=== PATIENT | female | born 1945 | race Caucasian/White ===

== ENCOUNTER 2022-02-23 13:57 | Emergency (ER) | payer MEDICARE ==
[2022-02-23 15:12] LABS: #Eosinphils 0.2 thou/uL (0.0-0.7); #Lymphocytes 1.9 thou/uL (1.20-3.40); #Monocytes 0.6 thou/uL (0.11-0.59); #Neutrophils 3.5 thou/uL (1.40-6.50); %Basophils 0.6 % (0.0-1.0); %Eosinophils 3.1 % (0.0-10.0); %Lymphocytes 30.2 % (21.0-51.0); %Monocytes 9.9 % (0.0-10.0); %Neutrophils 56.3 % (42.0-75.0); Hemoglobin 13.2 g/dL (12.0-16.0); Mean Corpuscular HGB CONC 33.2 g/dL (32.0-36.0); Mean Corpuscular Hemoglobin 30.8 pg (27.0-31.0); Mean Corpuscular Volume 92.8 fL (78.0-98.0); Mean Platelet Volume 6.5 fL (7.4-10.4); Platelet Count 262 thou/uL (130-400); Red Blood Cell (RBC) Count 4.29 mill/uL (4.20-5.40); White Blood Cell (WBC) Count 6.2 thou/uL (4.8-10.8)
[2022-02-23 15:33] LABS: ALT (SGPT) 28 U/L (8-55); AST (SGOT) 27 U/L (5-34); Albumin 3.9 g/dL (3.4-4.8); Alkaline Phosphatase 71 U/L (40-110); Anion Gap 13 mmol/L (10-20); BUN (Urea Nitrogen) 19 mg/dL (9.8-20.1); Bilirubin, Total 0.5 mg/dL (0.2-1.2); Calc. Creatinine Clearance 0 mL/min (70-130); Calcium 9.6 mg/dL (7.8-10.44); Carbon Dioxide 29 mmol/L (23-31); Chloride 101 mmol/L (98-107); Globulin 3.3 g/dL (2.4-3.5); Glucose 135 mg/dL (83-110); Potassium 4.2 mmol/L (3.5-5.1); Protein, Total 7.2 g/dL (5.8-8.1); Sodium 139 mmol/L (136-145)
[2022-02-23] MEDS ORDERED: Enoxaparin Sodium 80 MG/0.8 ML SYRINGE ONE ×2 (17:40→17:43)
[2022-02-23] MEDS ORDERED: Enoxaparin Sodium 40 MG/0.4 ML SYRINGE ONE ×2 (17:40→17:42)
== END 2022-02-23 18:00 | disposition home or self-care (01) ==
LOC: ERS 13:57
DX: I82.412 Acute embolism and thrombosis of left femoral vein (principal); E03.9 Hypothyroidism, unspecified; I10 Essential (primary) hypertension; G47.30 Sleep apnea, unspecified; E66.9 Obesity, unspecified; Z68.45 Body mass index [BMI] 70 or greater, adult; Z79.84 Long term (current) use of oral hypoglycemic drugs; Z79.82 Long term (current) use of aspirin; Z79.899 Other long term (current) drug therapy
CPT/HCPCS: 71045; 80053; 83880; 84484; 85025; 93005; 93970; 96372; J1650

== ENCOUNTER 2022-02-24 20:33 | Inpatient (IN) | payer MEDICARE ==
[2022-02-24] MEDS ORDERED: Bisacodyl 10 MG SUPP PR PRN (21:28)
[2022-02-24] MEDS ORDERED: HYDROcodone/Acetaminophen 5/325 mg Tablet PO PRN (21:28)
[2022-02-24] MEDS ORDERED: Ondansetron PF 4 MG/2 ML Vial IVP PRN (21:28)
[2022-02-24] MEDS ORDERED: HumaLOG 300 UNITS/3 ML VIAL SC PRN (21:28)
[2022-02-24] MEDS ORDERED: Dextrose 5% in Water 1,000 ML IV PRN (21:28)
[2022-02-24] MEDS ORDERED: Dextrose 50% Abboject 50 ML SYRINGE SLOW IVP PRN (21:28)
[2022-02-24] MEDS ORDERED: Zolpidem Tartrate 5 MG TAB PO PRN (21:28)
[2022-02-24] MEDS ORDERED: Guaifenesin DM 100-10/5 ML UDCUP PO PRN (21:28)
[2022-02-24] MEDS ORDERED: hydrALAZINE 20 MG/ML VIAL SLOW IVP PRN (21:31)
[2022-02-24 22:09] LABS: INR-International Normal Ratio 1.1; PTT 26.4 sec (22.9-36.1); Prothrombin Time 14.6 sec (12.0-14.7)
[2022-02-24] MEDS ORDERED: Warfarin Sodium 10 MG TAB PO SCH (22:30)
[2022-02-24] MEDS ORDERED: Warfarin Sodium 5 MG TAB PO SCH (22:30)
[2022-02-24] MEDS ORDERED: Enoxaparin Sodium 100 MG/ML SYRINGE SC SCH (22:30)
[2022-02-25 00:06] VITALS: BMI 47.2
[2022-02-25] MEDS ORDERED: Enoxaparin Sodium 120 MG/0.8 ML SYRINGE SC SCH (00:30)
[2022-02-25 04:59] LABS: #Basophils 0.1 thou/uL (0.0-0.2); #Eosinphils 0.3 thou/uL (0.0-0.7); #Lymphocytes 1.9 thou/uL (1.20-3.40); #Monocytes 0.6 thou/uL (0.11-0.59); #Neutrophils 3.5 thou/uL (1.40-6.50); %Basophils 1.1 % (0.0-1.0); %Lymphocytes 30.2 % (21.0-51.0); %Monocytes 9.4 % (0.0-10.0); %Neutrophils 55.4 % (42.0-75.0); Hemoglobin 12.8 g/dL (12.0-16.0); Mean Corpuscular HGB CONC 33.1 g/dL (32.0-36.0); Mean Corpuscular Hemoglobin 30.8 pg (27.0-31.0); Mean Platelet Volume 6.3 fL (7.4-10.4); Platelet Count 253 thou/uL (130-400); Red Blood Cell (RBC) Count 4.17 mill/uL (4.20-5.40); White Blood Cell (WBC) Count 6.4 thou/uL (4.8-10.8)
[2022-02-25 05:12] LABS: INR-International Normal Ratio 1.1; Prothrombin Time 14.8 sec (12.0-14.7)
[2022-02-25 05:27] LABS: ALT (SGPT) 26 U/L (8-55); AST (SGOT) 35 U/L (5-34); Albumin 3.6 g/dL (3.4-4.8); Alkaline Phosphatase 62 U/L (40-110); Anion Gap 14 mmol/L (10-20); BUN (Urea Nitrogen) 22 mg/dL (9.8-20.1); Bilirubin, Total 0.4 mg/dL (0.2-1.2); Calc. Creatinine Clearance 123 mL/min (70-130); Calcium 9.3 mg/dL (7.8-10.44); Carbon Dioxide 23 mmol/L (23-31); Chloride 104 mmol/L (98-107); Globulin 3.3 g/dL (2.4-3.5); Glucose 142 mg/dL (83-110); Potassium 3.9 mmol/L (3.5-5.1); Protein, Total 6.9 g/dL (5.8-8.1); Sodium 137 mmol/L (136-145)
[2022-02-25] MEDS: Enoxaparin Sodium 120 MG/0.8 ML SYRINGE SC SCH ×2 (08:44→21:04)
[2022-02-25] MEDS: HumaLOG 300 UNITS/3 ML VIAL SC PRN (10:57)
[2022-02-25] MEDS ORDERED: diphenhydrAMINE 25 MG CAP PO PRN (15:22)
[2022-02-25] MEDS ORDERED: Furosemide 40 MG TAB PO PRN (15:22)
[2022-02-25] MEDS ORDERED: Senokot 8.6 MG TAB PO PRN (15:22)
[2022-02-25] MEDS ORDERED: Warfarin Sodium 5 MG TAB PO SCH (17:00)
[2022-02-25] MEDS ORDERED: Warfarin Sodium 10 MG TAB PO SCH ×2 (17:00)
[2022-02-25] MEDS: Simethicone Chewable 80 MG TAB PO SCH (21:04)
[2022-02-25] MEDS: Carvedilol 6.25 MG TAB PO SCH (21:04)
[2022-02-25] MEDS ORDERED: Enoxaparin Sodium 100 MG/ML SYRINGE SC SCH (21:32)
[2022-02-26] MEDS: Levothyroxine Sodium 100 MCG TAB PO SCH (04:28)
[2022-02-26 05:07] LABS: INR-International Normal Ratio 1.1; Prothrombin Time 14.8 sec (12.0-14.7)
[2022-02-26] MEDS: Simethicone Chewable 80 MG TAB PO SCH ×2 (08:50→21:40)
[2022-02-26] MEDS: Carvedilol 6.25 MG TAB PO SCH ×2 (08:50→21:39)
[2022-02-26] MEDS: Aspirin 81 mg Enteric Coated Tablet PO SCH (08:51)
[2022-02-26] MEDS: Cyanocobalamin (Vitamin B-12) 1,000 MCG TAB PO SCH (08:51)
[2022-02-26] MEDS: Oxybutynin ER 5 MG TAB PO SCH (08:51)
[2022-02-26] MEDS: Enoxaparin Sodium 120 MG/0.8 ML SYRINGE SC SCH ×2 (08:51→21:39)
[2022-02-26] MEDS: Loratadine 10 MG TAB PO SCH (08:51)
[2022-02-26] MEDS: HumaLOG 300 UNITS/3 ML VIAL SC PRN (10:43)
[2022-02-26] MEDS ORDERED: Warfarin Sodium 7.5 MG TAB PO SCH (17:00)
[2022-02-27] MEDS: Levothyroxine Sodium 100 MCG TAB PO SCH (05:25)
[2022-02-27 05:31] LABS: INR-International Normal Ratio 1.2; Prothrombin Time 15.5 sec (12.0-14.7)
[2022-02-27] MEDS ORDERED: Warfarin Sodium 7.5 MG TAB PO SCH (08:04)
[2022-02-27] MEDS: Oxybutynin ER 5 MG TAB PO SCH (08:29)
[2022-02-27] MEDS: Aspirin 81 mg Enteric Coated Tablet PO SCH (08:29)
[2022-02-27] MEDS: Simethicone Chewable 80 MG TAB PO SCH ×2 (08:29→21:05)
[2022-02-27] MEDS: Cyanocobalamin (Vitamin B-12) 1,000 MCG TAB PO SCH (08:30)
[2022-02-27] MEDS: Carvedilol 6.25 MG TAB PO SCH (08:30)
[2022-02-27] MEDS: Acetaminophen 325 MG TAB PO PRN ×2 (08:30→12:55)
[2022-02-27] MEDS: Loratadine 10 MG TAB PO SCH (08:30)
[2022-02-27] MEDS: Enoxaparin Sodium 120 MG/0.8 ML SYRINGE SC SCH ×2 (08:30→21:05)
[2022-02-27] MEDS: HumaLOG 300 UNITS/3 ML VIAL SC PRN (10:48)
[2022-02-27] MEDS: Furosemide 20 MG/2 ML VIAL SLOW IVP SCH (14:14)
[2022-02-27] MEDS: Warfarin Sodium 10 MG TAB PO SCH (15:48)
[2022-02-28 04:32] LABS: INR-International Normal Ratio 1.6; Prothrombin Time 19.3 sec (12.0-14.7)
[2022-02-28 04:51] LABS: Anion Gap 11 mmol/L (10-20); BUN (Urea Nitrogen) 14 mg/dL (9.8-20.1); Calc. Creatinine Clearance 129 mL/min (70-130); Calcium 9.1 mg/dL (7.8-10.44); Carbon Dioxide 27 mmol/L (23-31); Chloride 103 mmol/L (98-107); Glucose 139 mg/dL (83-110); Potassium 3.6 mmol/L (3.5-5.1); Sodium 137 mmol/L (136-145)
[2022-02-28] MEDS: Levothyroxine Sodium 100 MCG TAB PO SCH (05:35)
[2022-02-28] MEDS: Furosemide 20 MG/2 ML VIAL SLOW IVP SCH ×2 (05:35→15:10)
[2022-02-28] MEDS: Aspirin 81 mg Enteric Coated Tablet PO SCH (08:41)
[2022-02-28] MEDS: Cyanocobalamin (Vitamin B-12) 1,000 MCG TAB PO SCH (08:41)
[2022-02-28] MEDS: Enoxaparin Sodium 120 MG/0.8 ML SYRINGE SC SCH ×2 (08:41→21:05)
[2022-02-28] MEDS: Oxybutynin ER 5 MG TAB PO SCH (08:42)
[2022-02-28] MEDS: Loratadine 10 MG TAB PO SCH (08:42)
[2022-02-28] MEDS: guaiFENesin ER 600 MG TAB PO SCH ×2 (08:42→21:05)
[2022-02-28] MEDS: Simethicone Chewable 80 MG TAB PO SCH ×2 (08:43→21:06)
[2022-02-28] MEDS: Carvedilol 3.125 MG TAB PO SCH (17:15)
[2022-02-28] MEDS: Warfarin Sodium 10 MG TAB PO SCH (17:15)
[2022-03-01 05:15] LABS: Prothrombin Time 22.8 sec (12.0-14.7)
[2022-03-01 05:26] LABS: Anion Gap 14 mmol/L (10-20); BUN (Urea Nitrogen) 17 mg/dL (9.8-20.1); Calc. Creatinine Clearance 125 mL/min (70-130); Carbon Dioxide 24 mmol/L (23-31); Chloride 102 mmol/L (98-107); Glucose 146 mg/dL (83-110); Potassium 3.3 mmol/L (3.5-5.1); Sodium 137 mmol/L (136-145)
[2022-03-01] MEDS: Furosemide 20 MG/2 ML VIAL SLOW IVP SCH (06:30)
[2022-03-01] MEDS: Levothyroxine Sodium 100 MCG TAB PO SCH (06:30)
[2022-03-01 08:31] VITALS: BP 147/66; TEMP 98.5
[2022-03-01] MEDS: Loratadine 10 MG TAB PO SCH (08:36)
[2022-03-01] MEDS: Cyanocobalamin (Vitamin B-12) 1,000 MCG TAB PO SCH (08:36)
[2022-03-01] MEDS: Aspirin 81 mg Enteric Coated Tablet PO SCH (08:36)
[2022-03-01] MEDS: Simethicone Chewable 80 MG TAB PO SCH (08:36)
[2022-03-01] MEDS: Oxybutynin ER 5 MG TAB PO SCH (08:36)
[2022-03-01] MEDS: guaiFENesin ER 600 MG TAB PO SCH (08:37)
[2022-03-01] MEDS: Enoxaparin Sodium 120 MG/0.8 ML SYRINGE SC SCH (08:37)
[2022-03-01] MEDS: Carvedilol 3.125 MG TAB PO SCH (08:37)
== END 2022-03-01 11:22 | disposition home or self-care (01) | DRG 300 ==
LOC: ERS 20:33 → T4-A 21:31 → 2SW 23:12
PROVIDERS: ADMIT Internal Medicine; ATTEND Internal Medicine
DX: I82.412 Acute embolism and thrombosis of left femoral vein (principal); I50.22 Chronic systolic (congestive) heart failure; Z68.42 Body mass index [BMI] 45.0-49.9, adult; Z20.822 Contact with and (suspected) exposure to COVID-19; I11.0 Hypertensive heart disease with heart failure; E11.9 Type 2 diabetes mellitus without complications; I25.10 Atherosclerotic heart disease of native coronary artery without angina pectoris; E03.9 Hypothyroidism, unspecified; G47.33 Obstructive sleep apnea (adult) (pediatric); E66.01 Morbid (severe) obesity due to excess calories; J32.9 Chronic sinusitis, unspecified; Z88.8 Allergy status to other drugs, medicaments and biological substances; Z79.890 Hormone replacement therapy; Z79.82 Long term (current) use of aspirin; Z79.84 Long term (current) use of oral hypoglycemic drugs; Z79.899 Other long term (current) drug therapy; Z90.710 Acquired absence of both cervix and uterus; Z90.09 Acquired absence of other part of head and neck
CPT/HCPCS: 36415; 36416; 80048; 80053; 81240; 81241; 84443; 85025; 85610; 85730; 93005; 99284; J1650; J1815; J1940; U0003; U0005

== ENCOUNTER 2022-03-26 21:19 | Emergency (ER) | payer MEDICARE, OTHER ==
[2022-03-26 22:32] LABS: #Eosinphils 0.1 thou/uL (0.0-0.7); #Lymphocytes 1.7 thou/uL (1.20-3.40); #Monocytes 0.6 thou/uL (0.11-0.59); %Basophils 0.1 % (0.0-1.0); %Eosinophils 2.6 % (0.0-10.0); %Lymphocytes 31.5 % (21.0-51.0); %Monocytes 10.8 % (0.0-10.0); %Neutrophils 55.1 % (42.0-75.0); Hemoglobin 12.7 g/dL (12.0-16.0); Mean Corpuscular HGB CONC 32.4 g/dL (32.0-36.0); Mean Corpuscular Hemoglobin 30.2 pg (27.0-31.0); Mean Corpuscular Volume 93.1 fL (78.0-98.0); Mean Platelet Volume 6.9 fL (7.4-10.4); Platelet Count 207 thou/uL (130-400); Red Blood Cell (RBC) Count 4.21 mill/uL (4.20-5.40); White Blood Cell (WBC) Count 5.4 thou/uL (4.8-10.8)
[2022-03-26 22:56] LABS: ALT (SGPT) 27 U/L (8-55); AST (SGOT) 27 U/L (5-34); Albumin 3.9 g/dL (3.4-4.8); Alkaline Phosphatase 66 U/L (40-110); Anion Gap 13 mmol/L (10-20); BUN (Urea Nitrogen) 12 mg/dL (9.8-20.1); Bilirubin, Total 0.4 mg/dL (0.2-1.2); Calc. Creatinine Clearance 0 mL/min (70-130); Calcium 8.9 mg/dL (7.8-10.44); Carbon Dioxide 27 mmol/L (23-31); Chloride 101 mmol/L (98-107); Estimated GFR 84; Globulin 2.7 g/dL (2.4-3.5); Glucose 131 mg/dL (83-110); Potassium 4.5 mmol/L (3.5-5.1); Protein, Total 6.6 g/dL (5.8-8.1); Sodium 136 mmol/L (136-145)
== END 2022-03-26 23:16 | disposition home or self-care (01) ==
LOC: ERS 21:19
DX: U07.1 COVID-19 (principal); E03.9 Hypothyroidism, unspecified; I10 Essential (primary) hypertension; Z79.899 Other long term (current) drug therapy
CPT/HCPCS: 36415; 71045; 80053; 83880; 84484; 85025; 93005

== ENCOUNTER 2022-05-01 18:29 | Inpatient (IN) | payer MEDICARE, OTHER ==
[2022-05-01 19:27] LABS: #Eosinphils 0.1 thou/uL (0.0-0.7); #Lymphocytes 1.6 thou/uL (1.20-3.40); #Monocytes 0.5 thou/uL (0.11-0.59); #Neutrophils 8.5 thou/uL (1.40-6.50); %Basophils 0.2 % (0.0-1.0); %Eosinophils 1.1 % (0.0-10.0); %Lymphocytes 14.8 % (21.0-51.0); %Monocytes 4.5 % (0.0-10.0); %Neutrophils 79.4 % (42.0-75.0); Hemoglobin 14.2 g/dL (12.0-16.0); Mean Corpuscular Hemoglobin 29.6 pg (27.0-31.0); Mean Corpuscular Volume 89.5 fL (78.0-98.0); Mean Platelet Volume 6.6 fL (7.4-10.4); Platelet Count 283 thou/uL (130-400); RBC Distribution Width 13.1 % (11.5-14.5); White Blood Cell (WBC) Count 10.8 thou/uL (4.8-10.8)
[2022-05-01 19:57] LABS: ALT (SGPT) 22 U/L (8-55); AST (SGOT) 25 U/L (5-34); Albumin 4.3 g/dL (3.4-4.8); Alkaline Phosphatase 81 U/L (40-110); Anion Gap 13 mmol/L (10-20); BUN (Urea Nitrogen) 16 mg/dL (9.8-20.1); Bilirubin, Total 0.5 mg/dL (0.2-1.2); Calc. Creatinine Clearance 0 mL/min (70-130); Calcium 9.6 mg/dL (7.8-10.44); Carbon Dioxide 26 mmol/L (23-31); Chloride 99 mmol/L (98-107); Estimated GFR 65; Globulin 3.5 g/dL (2.4-3.5); Glucose 173 mg/dL (83-110); Lipase 23 U/L (8-78); Potassium 4.3 mmol/L (3.5-5.1); Protein, Total 7.8 g/dL (5.8-8.1); Sodium 134 mmol/L (136-145)
[2022-05-01] MEDS ORDERED: Ondansetron PF 4 MG/2 ML Vial ONE (20:36)
[2022-05-01] MEDS ORDERED: Morphine 4 MG/ML VIAL ONE (20:36)
[2022-05-01] MEDS ORDERED: Ketorolac Tromethamine 30 MG/ML VIAL ONE (23:01)
[2022-05-01 23:26] LABS: Bacteria/HPF None Seen HPF (None Seen); Bilirubin Negative (Negative); Blood, Urine Negative (Negative); Clarity Turbid (Clear); Glucose, Urine (Dipstick) 150 mg/dL (Negative); Ketone, Urine 10 mg/dL (Negative); Leukocyte 75 Leu/uL (Negative); Nitrite Negative (Negative); Protein, Urine (Dipstick) Negative (Neg-Trace); RBC/HPF 0-3 HPF (0-3); Specific Gravity, Urine 1.029 (1.002-1.036); Squamous Epithelial 0-3 HPF (0-3); Urobilinogen Normal mg/dL (Less than 2); pH, Urine 7.5 (5.0-9.0)
[2022-05-02] MEDS ORDERED: Ondansetron PF 4 MG/2 ML Vial IVP PRN (00:45)
[2022-05-02] MEDS ORDERED: Ondansetron ODT 4 MG TAB SL PRN (00:45)
[2022-05-02] MEDS ORDERED: Morphine 4 MG/ML VIAL SLOW IVP PRN (00:45)
[2022-05-02] MEDS ORDERED: Sodium Chloride 0.9% 1,000 ML IV SCH ×2 (00:45→04:44)
[2022-05-02 01:23] VITALS: BMI 47.6
[2022-05-02 02:14] LABS: SARS-CoV-2 NAA Rapid Test DETECTED (NotDetected)
[2022-05-02] MEDS ORDERED: Acetaminophen 325 MG TAB PO PRN (04:43)
[2022-05-02] MEDS ORDERED: HumaLOG 300 UNITS/3 ML VIAL SC PRN (04:45)
[2022-05-02] MEDS ORDERED: Dextrose 5% in Water 1,000 ML IV PRN (04:45)
[2022-05-02] MEDS ORDERED: Dextrose 50% Abboject 50 ML SYRINGE SLOW IVP PRN (04:45)
[2022-05-02 05:45] LABS: #Lymphocytes 1.3 thou/uL (1.20-3.40); #Neutrophils 9.7 thou/uL (1.40-6.50); %Eosinophils 0.1 % (0.0-10.0); %Neutrophils 80.9 % (42.0-75.0); Hemoglobin 13.4 g/dL (12.0-16.0); Mean Corpuscular HGB CONC 32.2 g/dL (32.0-36.0); Mean Corpuscular Hemoglobin 29.1 pg (27.0-31.0); Mean Corpuscular Volume 90.4 fL (78.0-98.0); Mean Platelet Volume 6.8 fL (7.4-10.4); Platelet Count 250 thou/uL (130-400); RBC Distribution Width 12.9 % (11.5-14.5); Red Blood Cell (RBC) Count 4.61 mill/uL (4.20-5.40)
[2022-05-02] MEDS ORDERED: Heparin 10,000 UNITS/ 10 ML VIAL SLOW IVP SCH (05:45)
[2022-05-02] MEDS ORDERED: Heparin 25,000 units/D5W 500 ML IVPB SCH (05:45)
[2022-05-02 05:57] LABS: Anion Gap 17 mmol/L (10-20); BUN (Urea Nitrogen) 15 mg/dL (9.8-20.1); Calc. Creatinine Clearance 128 mL/min (70-130); Calcium 8.6 mg/dL (7.8-10.44); Carbon Dioxide 21 mmol/L (23-31); Chloride 102 mmol/L (98-107); Estimated GFR 88; Glucose 145 mg/dL (83-110); Potassium 4.8 mmol/L (3.5-5.1); Sodium 135 mmol/L (136-145)
[2022-05-02] MEDS ORDERED: Heparin 5,000 UNITS/ML VIAL SC SCH (09:00)
[2022-05-02] MEDS ORDERED: cefOXitin 2 GM in Sodium Chloride 0.9% 100 ML IVPB SCH (11:45)
[2022-05-02] MEDS ORDERED: Bupivacaine/Epinephrine 0.25% 30 ML VIAL ONE (12:29)
[2022-05-02] MEDS ORDERED: cefOXitin 2 GM VIAL ONE ×2 (12:36→14:21)
[2022-05-02] MEDS ORDERED: Sodium Chloride 0.9% 100 ML ONE (12:36)
[2022-05-02] MEDS ORDERED: fentaNYL Citrate/PF 100 MCG/2 ML SYRINGE ONE ×2 (12:37→17:03)
[2022-05-02] MEDS ORDERED: SUGAMMADEX SODIUM 200 MG/2 ML VIAL ONE ×2 (12:37→16:39)
[2022-05-02] MEDS ORDERED: Phenylephrine 10 MG/ML VIAL ONE (12:49)
[2022-05-02] MEDS ORDERED: PROPOFOL 200 MG/20 ML VIAL ONE (12:49)
[2022-05-02] MEDS ORDERED: Ondansetron PF 4 MG/2 ML Vial ONE (12:49)
[2022-05-02] MEDS ORDERED: Rocuronium Bromide 10 MG/ML (10ML VIAL) ONE (12:49)
[2022-05-02] MEDS ORDERED: ePHEDrine 50 MG/ML VIAL ONE (12:49)
[2022-05-02] MEDS ORDERED: Succinylcholine 200 MG/10 ml SYRINGE FS ONE (12:49)
[2022-05-02] MEDS ORDERED: Lidocaine 1% MPF 2 ML VIAL ONE (12:49)
[2022-05-02] MEDS ORDERED: Labetalol HCl 100 MG/20 ML VIAL SLOW IVP PRN (15:34)
[2022-05-02] MEDS ORDERED: Electrolyte Replacement Protocol 1 EACH FS PRN (15:45)
[2022-05-02] MEDS ORDERED: Promethazine HCl 25 MG/ML VIAL IVPB PRN (16:53)
[2022-05-02] MEDS ORDERED: Ondansetron HCl/PF 4 MG/2 ML Vial IVP PRN (16:53)
[2022-05-02] MEDS: Morphine 4 MG/ML VIAL SLOW IVP PRN (20:11)
[2022-05-02] MEDS: Enoxaparin Sodium 40 MG/0.4 ML SYRINGE SC SCH (20:13)
[2022-05-03] MEDS: Morphine 4 MG/ML VIAL SLOW IVP PRN ×2 (03:34→07:29)
[2022-05-03 05:28] LABS: #Lymphocytes 1.4 thou/uL (1.20-3.40); #Monocytes 0.7 thou/uL (0.11-0.59); #Neutrophils 5.6 thou/uL (1.40-6.50); %Basophils 0.2 % (0.0-1.0); %Eosinophils 0.1 % (0.0-10.0); %Monocytes 9.2 % (0.0-10.0); %Neutrophils 72.6 % (42.0-75.0); Mean Corpuscular HGB CONC 32.5 g/dL (32.0-36.0); Mean Corpuscular Hemoglobin 29.4 pg (27.0-31.0); Mean Corpuscular Volume 90.6 fL (78.0-98.0); Mean Platelet Volume 6.7 fL (7.4-10.4); Platelet Count 235 thou/uL (130-400); RBC Distribution Width 12.9 % (11.5-14.5); Red Blood Cell (RBC) Count 4.07 mill/uL (4.20-5.40); White Blood Cell (WBC) Count 7.8 thou/uL (4.8-10.8)
[2022-05-03 05:59] LABS: ALT (SGPT) 37 U/L (8-55); AST (SGOT) 33 U/L (5-34); Albumin 3.3 g/dL (3.4-4.8); Alkaline Phosphatase 52 U/L (40-110); Anion Gap 14 mmol/L (10-20); BUN (Urea Nitrogen) 13 mg/dL (9.8-20.1); Bilirubin, Total 0.6 mg/dL (0.2-1.2); Calc. Creatinine Clearance 140 mL/min (70-130); Calcium 8.3 mg/dL (7.8-10.44); Carbon Dioxide 23 mmol/L (23-31); Chloride 103 mmol/L (98-107); Estimated GFR 90; Globulin 2.7 g/dL (2.4-3.5); Glucose 139 mg/dL (83-110); Magnesium 1.8 mg/dL (1.6-2.6); Potassium 3.9 mmol/L (3.5-5.1); Sodium 136 mmol/L (136-145)
[2022-05-03] MEDS: Lactated Ringer's 1,000 ML IV SCH ×2 (06:33→18:39)
[2022-05-03] MEDS ORDERED: Magnesium 2 GM/50 ML(in water) 2 GM in Premix Bag 1 BAG IVPB SCH (08:00)
[2022-05-03] MEDS ORDERED: Ciprofloxacin 500 MG TAB PO SCH (09:45)
[2022-05-03] MEDS: HYDROcodone/Acetaminophen 5/325 mg Tablet PO PRN ×2 (12:53→17:47)
[2022-05-03] MEDS: Carvedilol 3.125 MG TAB PO SCH (17:49)
[2022-05-03] MEDS: Ciprofloxacin 500 MG TAB PO SCH (20:39)
[2022-05-03] MEDS: Latanoprost 0.005% Ophth Soln 2.5 ml Bottle EA EYE SCH (20:40)
[2022-05-03] MEDS: Enoxaparin Sodium 40 MG/0.4 ML SYRINGE SC SCH (20:40)
[2022-05-03] MEDS ORDERED: Pantoprazole 40 MG VIAL IVP SCH (21:00)
[2022-05-04] MEDS: Levothyroxine Sodium 100 MCG TAB PO SCH (05:34)
[2022-05-04] MEDS: Ciprofloxacin 500 MG TAB PO SCH ×2 (05:34→20:44)
[2022-05-04 06:20] LABS: #Eosinphils 0.1 thou/uL (0.0-0.7); #Lymphocytes 1.3 thou/uL (1.20-3.40); #Monocytes 0.8 thou/uL (0.11-0.59); #Neutrophils 5.7 thou/uL (1.40-6.50); %Basophils 0.4 % (0.0-1.0); %Eosinophils 0.9 % (0.0-10.0); %Lymphocytes 16.1 % (21.0-51.0); %Monocytes 10.4 % (0.0-10.0); %Neutrophils 72.1 % (42.0-75.0); Hemoglobin 11.3 g/dL (12.0-16.0); Mean Corpuscular HGB CONC 32.6 g/dL (32.0-36.0); Mean Corpuscular Volume 92.1 fL (78.0-98.0); Mean Platelet Volume 7.1 fL (7.4-10.4); Platelet Count 224 thou/uL (130-400); RBC Distribution Width 12.9 % (11.5-14.5); Red Blood Cell (RBC) Count 3.75 mill/uL (4.20-5.40); White Blood Cell (WBC) Count 7.9 thou/uL (4.8-10.8)
[2022-05-04 06:57] LABS: Anion Gap 13 mmol/L (10-20); BUN (Urea Nitrogen) 9 mg/dL (9.8-20.1); Calc. Creatinine Clearance 154 mL/min (70-130); Calcium 8.2 mg/dL (7.8-10.44); Carbon Dioxide 24 mmol/L (23-31); Chloride 103 mmol/L (98-107); Estimated GFR 93; Glucose 134 mg/dL (83-110); Magnesium 2.1 mg/dL (1.6-2.6); Potassium 3.9 mmol/L (3.5-5.1); Sodium 136 mmol/L (136-145)
[2022-05-04 06:58] LABS: Phosphorus 1.6 mg/dL (2.3-4.7)
[2022-05-04] MEDS: Lactated Ringer's 1,000 ML IV SCH (07:15)
[2022-05-04] MEDS ORDERED: Potassium Phosphate 30 MMOL in Sodium Chloride 0.9% 250 ML 250 ML IVPB SCH (07:45)
[2022-05-04] MEDS ORDERED: Albuterol 200 PUFF (6.7GM INHALER) INH PRN (08:14)
[2022-05-04] MEDS ORDERED: Albuterol 200 PUFF (6.7GM INHALER) INH SCH (08:15)
[2022-05-04] MEDS ORDERED: Furosemide 40 MG/4 ML VIAL SLOW IVP SCH (08:15)
[2022-05-04] MEDS ORDERED: Potassium Chloride 20 MEQ TAB PO SCH (08:15)
[2022-05-04] MEDS: HYDROcodone/Acetaminophen 5/325 mg Tablet PO PRN ×2 (08:33→17:44)
[2022-05-04] MEDS: Carvedilol 3.125 MG TAB PO SCH ×2 (08:34→17:44)
[2022-05-04] MEDS: Aspirin 81 mg Enteric Coated Tablet PO SCH (09:56)
[2022-05-04] MEDS: Oxybutynin ER 5 MG TAB PO SCH (09:57)
[2022-05-04] MEDS: HumaLOG 300 UNITS/3 ML VIAL SC PRN ×2 (13:26→17:45)
[2022-05-04] MEDS: Furosemide 40 MG/4 ML VIAL SLOW IVP SCH (15:08)
[2022-05-04] MEDS: Enoxaparin Sodium 120 MG/0.8 ML SYRINGE SC SCH (20:45)
[2022-05-04] MEDS: Latanoprost 0.005% Ophth Soln 2.5 ml Bottle EA EYE SCH (20:45)
[2022-05-05] MEDS: Ciprofloxacin 500 MG TAB PO SCH ×2 (05:48→20:25)
[2022-05-05] MEDS: Levothyroxine Sodium 100 MCG TAB PO SCH (05:48)
[2022-05-05] MEDS: Furosemide 40 MG/4 ML VIAL SLOW IVP SCH (05:49)
[2022-05-05 06:08] LABS: #Eosinphils 0.3 thou/uL (0.0-0.7); #Lymphocytes 1.3 thou/uL (1.20-3.40); #Monocytes 0.8 thou/uL (0.11-0.59); #Neutrophils 5.5 thou/uL (1.40-6.50); %Basophils 0.4 % (0.0-1.0); %Eosinophils 3.9 % (0.0-10.0); %Lymphocytes 16.1 % (21.0-51.0); %Monocytes 10.2 % (0.0-10.0); %Neutrophils 69.4 % (42.0-75.0); Hemoglobin 11.5 g/dL (12.0-16.0); Mean Corpuscular HGB CONC 33.6 g/dL (32.0-36.0); Mean Corpuscular Hemoglobin 30.8 pg (27.0-31.0); Mean Corpuscular Volume 91.6 fL (78.0-98.0); Mean Platelet Volume 7.1 fL (7.4-10.4); Platelet Count 246 thou/uL (130-400); RBC Distribution Width 12.9 % (11.5-14.5); Red Blood Cell (RBC) Count 3.73 mill/uL (4.20-5.40)
[2022-05-05 06:18] LABS: Phosphorus 2.3 mg/dL (2.3-4.7)
[2022-05-05 06:20] LABS: Anion Gap 14 mmol/L (10-20); BUN (Urea Nitrogen) 9 mg/dL (9.8-20.1); Calc. Creatinine Clearance 144 mL/min (70-130); Calcium 8.1 mg/dL (7.8-10.44); Carbon Dioxide 26 mmol/L (23-31); Chloride 98 mmol/L (98-107); Estimated GFR 91; Glucose 147 mg/dL (83-110); Magnesium 1.9 mg/dL (1.6-2.6); Potassium 3.4 mmol/L (3.5-5.1); Sodium 135 mmol/L (136-145)
[2022-05-05] MEDS ORDERED: Potassium Chloride 20 MEQ TAB PO SCH (07:30)
[2022-05-05] MEDS ORDERED: Magnesium 2 GM/50 ML(in water) 2 GM in Premix Bag 1 BAG IVPB SCH (09:00)
[2022-05-05] MEDS: Enoxaparin Sodium 120 MG/0.8 ML SYRINGE SC SCH ×2 (09:05→20:24)
[2022-05-05] MEDS: Aspirin 81 mg Enteric Coated Tablet PO SCH (09:05)
[2022-05-05] MEDS: Oxybutynin ER 5 MG TAB PO SCH (09:06)
[2022-05-05] MEDS: Carvedilol 3.125 MG TAB PO SCH ×2 (10:53→17:37)
[2022-05-05] MEDS: Latanoprost 0.005% Ophth Soln 2.5 ml Bottle EA EYE SCH (20:25)
[2022-05-05 23:10] LABS: Potassium 3.8 mmol/L (3.5-5.1)
[2022-05-06] MEDS: Levothyroxine Sodium 100 MCG TAB PO SCH (05:27)
[2022-05-06] MEDS: Ciprofloxacin 500 MG TAB PO SCH ×2 (05:27→21:25)
[2022-05-06 06:36] LABS: #Eosinphils 0.4 thou/uL (0.0-0.7); #Lymphocytes 1.6 thou/uL (1.20-3.40); #Monocytes 0.8 thou/uL (0.11-0.59); #Neutrophils 3.9 thou/uL (1.40-6.50); %Basophils 0.5 % (0.0-1.0); %Eosinophils 6.7 % (0.0-10.0); %Lymphocytes 23.1 % (21.0-51.0); %Monocytes 11.6 % (0.0-10.0); %Neutrophils 58.1 % (42.0-75.0); Hemoglobin 11.5 g/dL (12.0-16.0); Mean Corpuscular HGB CONC 33.4 g/dL (32.0-36.0); Mean Corpuscular Hemoglobin 30.5 pg (27.0-31.0); Mean Corpuscular Volume 91.4 fL (78.0-98.0); Mean Platelet Volume 6.8 fL (7.4-10.4); Platelet Count 258 thou/uL (130-400); RBC Distribution Width 12.7 % (11.5-14.5); Red Blood Cell (RBC) Count 3.76 mill/uL (4.20-5.40); White Blood Cell (WBC) Count 6.7 thou/uL (4.8-10.8)
[2022-05-06 06:53] LABS: Anion Gap 13 mmol/L (10-20); BUN (Urea Nitrogen) 9 mg/dL (9.8-20.1); Calc. Creatinine Clearance 159 mL/min (70-130); Calcium 8.3 mg/dL (7.8-10.44); Carbon Dioxide 27 mmol/L (23-31); Chloride 97 mmol/L (98-107); Estimated GFR 93; Glucose 135 mg/dL (83-110); Magnesium 2.1 mg/dL (1.6-2.6); Potassium 3.7 mmol/L (3.5-5.1); Sodium 133 mmol/L (136-145)
[2022-05-06] MEDS ORDERED: Furosemide 40 MG/4 ML VIAL SLOW IVP SCH (09:00)
[2022-05-06] MEDS: Carvedilol 3.125 MG TAB PO SCH ×2 (09:20→16:09)
[2022-05-06] MEDS: Oxybutynin ER 5 MG TAB PO SCH (09:20)
[2022-05-06] MEDS: Aspirin 81 mg Enteric Coated Tablet PO SCH (09:20)
[2022-05-06] MEDS: Enoxaparin Sodium 120 MG/0.8 ML SYRINGE SC SCH ×2 (09:21→21:25)
[2022-05-06] MEDS: HYDROcodone/Acetaminophen 5/325 mg Tablet PO PRN (10:37)
[2022-05-06] MEDS: HumaLOG 300 UNITS/3 ML VIAL SC PRN ×2 (13:53→17:52)
[2022-05-06] MEDS: Latanoprost 0.005% Ophth Soln 2.5 ml Bottle EA EYE SCH (21:25)
[2022-05-07] MEDS: Ciprofloxacin 500 MG TAB PO SCH ×2 (05:18→21:00)
[2022-05-07] MEDS: Levothyroxine Sodium 100 MCG TAB PO SCH (05:18)
[2022-05-07] MEDS: Carvedilol 3.125 MG TAB PO SCH ×2 (09:30→17:03)
[2022-05-07] MEDS: Furosemide 40 MG TAB PO SCH (09:30)
[2022-05-07] MEDS: HYDROcodone/Acetaminophen 5/325 mg Tablet PO PRN ×3 (09:30→20:58)
[2022-05-07] MEDS: Enoxaparin Sodium 120 MG/0.8 ML SYRINGE SC SCH ×2 (09:31→21:01)
[2022-05-07] MEDS: Oxybutynin ER 5 MG TAB PO SCH (09:31)
[2022-05-07] MEDS: Aspirin 81 mg Enteric Coated Tablet PO SCH (09:31)
[2022-05-07] MEDS: HumaLOG 300 UNITS/3 ML VIAL SC PRN ×2 (11:37→17:03)
[2022-05-07] MEDS: Simethicone Chewable 80 MG TAB PO PRN ×2 (13:18→20:57)
[2022-05-07] MEDS: Latanoprost 0.005% Ophth Soln 2.5 ml Bottle EA EYE SCH (21:01)
[2022-05-08] MEDS: Furosemide 40 MG TAB PO SCH (05:42)
[2022-05-08] MEDS: Levothyroxine Sodium 100 MCG TAB PO SCH (05:43)
[2022-05-08] MEDS: Ciprofloxacin 500 MG TAB PO SCH (05:43)
[2022-05-08 07:28] VITALS: TEMP 98.1
[2022-05-08 08:12] VITALS: BP 117/69
[2022-05-08] MEDS: Carvedilol 3.125 MG TAB PO SCH (09:00)
[2022-05-08] MEDS: Aspirin 81 mg Enteric Coated Tablet PO SCH (09:00)
[2022-05-08] MEDS: Oxybutynin ER 5 MG TAB PO SCH (09:00)
[2022-05-08] MEDS: Enoxaparin Sodium 120 MG/0.8 ML SYRINGE SC SCH (09:01)
[2022-05-08] MEDS: Simethicone Chewable 80 MG TAB PO PRN (09:10)
[2022-05-08] MEDS: HYDROcodone/Acetaminophen 5/325 mg Tablet PO PRN (09:12)
== END 2022-05-08 10:27 | DRG 353 ==
LOC: ERS 18:29 → SURG A 23:24
PROVIDERS: ADMIT Internal Medicine; ATTEND Family Medicine
PROC: 8E0ZXY6 Isolation (ICD-10-PCS; 2022-05-01)
PROC: 0DH67UZ Insertion of Feeding Device into Stomach, Via Natural or Artificial Opening (ICD-10-PCS; 2022-05-01)
PROC: 3E0G76Z Introduction of Nutritional Substance into Upper GI, Via Natural or Artificial Opening (ICD-10-PCS; 2022-05-01)
PROC: 0WUF4JZ Supplement Abdominal Wall with Synthetic Substitute, Percutaneous Endoscopic Approach (ICD-10-PCS; principal; 2022-05-02)
DX: K43.6 Other and unspecified ventral hernia with obstruction, without gangrene (principal); I50.23 Acute on chronic systolic (congestive) heart failure; U07.1 COVID-19; N39.0 Urinary tract infection, site not specified; Z68.42 Body mass index [BMI] 45.0-49.9, adult; B96.20 Unspecified Escherichia coli [E. coli] as the cause of diseases classified elsewhere; I25.10 Atherosclerotic heart disease of native coronary artery without angina pectoris; E11.9 Type 2 diabetes mellitus without complications; E03.9 Hypothyroidism, unspecified; I11.0 Hypertensive heart disease with heart failure; E66.01 Morbid (severe) obesity due to excess calories; G47.33 Obstructive sleep apnea (adult) (pediatric); Z79.01 Long term (current) use of anticoagulants; Z88.8 Allergy status to other drugs, medicaments and biological substances; Z79.899 Other long term (current) drug therapy; Z79.890 Hormone replacement therapy; Z86.718 Personal history of other venous thrombosis and embolism; Z79.82 Long term (current) use of aspirin; Z79.84 Long term (current) use of oral hypoglycemic drugs; Z90.49 Acquired absence of other specified parts of digestive tract; Z90.89 Acquired absence of other organs; Z90.710 Acquired absence of both cervix and uterus; Z82.49 Family history of ischemic heart disease and other diseases of the circulatory system
CPT/HCPCS: 36415; 36416; 71045; 74018; 74019; 74177; 80048; 80053; 81003; 81015; 83690; 83735; 83880; 84100; 85025; 85730; 87077; 87086; 87186; 93005; 96361; 96374; 96375; C1781; C9113; J0694; J1644; J1650; J1815; J1885; J1940; J2270; J2370; J2405; J2704; J3475; J3490; J7050; J7120; U0002

== ENCOUNTER 2024-07-07 20:13 | Inpatient (IN) | payer MEDICARE ==
[~2024-07-07 20:13] MED LIST: Iopamidol-370 76% 500 ML MDV (1 ML CHARGE) ONE
[2024-07-07 21:20] LABS: #Basophils 0.03 10x3/uL (0.0-0.2); #Eosinophils Less than 0.03 10x3/uL (0.0-0.7); %Basophils 0.2 % (0.0-1.0); %Lymphocytes 3.7 % (21.0-51.0); %Monocytes 4.6 % (0.0-10.0); %Neutrophils 91.2 % (42.0-75.0); Hematocrit 34.6 % (36.0-47.0); Hemoglobin 11.1 g/dL (12.0-16.0); Mean Corpuscular HGB CONC 32.1 g/dL (32.0-36.0); Mean Corpuscular Hemoglobin 26.7 pg (27.0-31.0); Mean Corpuscular Volume 83.2 fL (78.0-98.0); Mean Platelet Volume 9.7 fL (7.4-10.4); Platelet Count 313 10x3/uL (130-400); RBC Distribution Width 17.8 % (11.5-14.5); Red Blood Cell (RBC) Count 4.16 mill/uL (4.20-5.40)
[2024-07-07] MEDS ORDERED: Furosemide 40 MG (4 mL) VIAL ONE (21:21)
[2024-07-07 21:31] LABS: ALT (SGPT) 112 U/L (8-55); AST (SGOT) 159 U/L (5-34); Albumin 2.4 g/dL (3.4-4.8); Alkaline Phosphatase 697 U/L (40-110); Anion Gap 13 mmol/L (10-20); BUN (Urea Nitrogen) 14 mg/dL (9.8-20.1); Bilirubin, Total 4.7 mg/dL (0.2-1.2); Calc. Creatinine Clearance 0 mL/min (70-130); Calcium 8.7 mg/dL (7.8-10.44); Carbon Dioxide 20 mmol/L (23-31); Chloride 104 mmol/L (98-107); Estimated GFR 92; Globulin 3.9 g/dL (2.4-3.5); Glucose 164 mg/dL (83-110); Lipase 35 U/L (8-78); Magnesium 1.4 mg/dL (1.6-2.6); Potassium 3.8 mmol/L (3.5-5.1); Protein, Total 6.3 g/dL (5.8-8.1); Sodium 133 mmol/L (136-145)
[2024-07-07 21:36] LABS: Troponin I Less than 0.010 ng/mL (< 0.028)
[2024-07-07 22:31] LABS: Bacteria/HPF None Seen HPF (None Seen); Bilirubin Negative (Negative); Blood, Urine Negative (Negative); CAUTI Indications for Culture Dysuria,urgency,freq; Clarity Clear (Clear); Glucose, Urine (Dipstick) Normal (Negative); Ketone, Urine 10 mg/dL (Negative); Leukocyte Negative Leu/uL (Negative); Nitrite Negative (Negative); Protein, Urine (Dipstick) Negative (Neg-Trace); RBC/HPF None Seen HPF (0-3); Urobilinogen Normal mg/dL (Less than 2); WBC/HPF 0-3 HPF (0-3); pH, Urine 5.5 (5.0-9.0)
[2024-07-07 22:34] LABS: Urine Culture Reflex No No
[2024-07-08] MEDS ORDERED: Piperacillin/Tazobactam 4.5 GM VIAL ONE (00:11)
[2024-07-08] MEDS ORDERED: Sodium Chloride 0.9% 100 ML ONE (00:12)
[2024-07-08 02:00] VITALS: BMI 46.5
[2024-07-08] MEDS ORDERED: Acetaminophen 650 MG Suppository PR PRN (02:14)
[2024-07-08] MEDS ORDERED: Ondansetron PF 4 MG/2 ML Vial IVP PRN (02:14)
[2024-07-08] MEDS ORDERED: Ondansetron ODT 4 MG TAB PO PRN (02:14)
[2024-07-08] MEDS: Acetaminophen 325 MG TAB PO SCH (03:06)
[2024-07-08] MEDS ORDERED: Dextrose 5% in Water 1,000 ML IV PRN (03:51)
[2024-07-08] MEDS ORDERED: Glucagon 1 MG/ML KIT IM PRN (03:51)
[2024-07-08] MEDS ORDERED: Dextrose 50% Abboject 50 ML SYRINGE SLOW IVP PRN (03:51)
[2024-07-08] MEDS: Levothyroxine Sodium 100 MCG TAB PO SCH (05:33)
[2024-07-08] MEDS ORDERED: Piperacillin/Tazobactam 4.5 GM in Sodium Chloride 0.9% 100 ML IVPB SCH (06:00)
[2024-07-08 06:40] LABS: #Basophils 0.04 10x3/uL (0.0-0.2); #Eosinophils Less than 0.03 10x3/uL (0.0-0.7); %Basophils 0.3 % (0.0-1.0); %Eosinophils 0.1 % (0.0-10.0); %Monocytes 6.1 % (0.0-10.0); %Neutrophils 86.1 % (42.0-75.0); Hematocrit 34.5 % (36.0-47.0); Hemoglobin 11.1 g/dL (12.0-16.0); Mean Corpuscular HGB CONC 32.2 g/dL (32.0-36.0); Mean Corpuscular Hemoglobin 26.5 pg (27.0-31.0); Mean Corpuscular Volume 82.3 fL (78.0-98.0); Mean Platelet Volume 10.1 fL (7.4-10.4); Platelet Count 265 10x3/uL (130-400); RBC Distribution Width 18.2 % (11.5-14.5); Red Blood Cell (RBC) Count 4.19 mill/uL (4.20-5.40)
[2024-07-08 06:51] LABS: Hemoglobin A1c 5.9 % (4.0-6.0)
[2024-07-08 06:57] LABS: ALT (SGPT) 122 U/L (8-55); AST (SGOT) 188 U/L (5-34); Albumin 2.4 g/dL (3.4-4.8); Alkaline Phosphatase 711 U/L (40-110); Anion Gap 15 mmol/L (10-20); BUN (Urea Nitrogen) 12 mg/dL (9.8-20.1); Bilirubin, Total 6.5 mg/dL (0.2-1.2); Calc. Creatinine Clearance 130 mL/min (70-130); Calcium 9.1 mg/dL (7.8-10.44); Carbon Dioxide 23 mmol/L (23-31); Chloride 101 mmol/L (98-107); Estimated GFR 89; Globulin 4.2 g/dL (2.4-3.5); Glucose 147 mg/dL (83-110); Potassium 3.1 mmol/L (3.5-5.1); Protein, Total 6.6 g/dL (5.8-8.1); Sodium 136 mmol/L (136-145)
[2024-07-08] MEDS: Oxybutynin ER 5 MG TAB PO SCH (08:47)
[2024-07-08] MEDS: Carvedilol 6.25 MG TAB PO SCH (08:47)
[2024-07-08] MEDS: Sacubitril 24MG/Valsartan 26 MG TAB PO SCH (08:47)
[2024-07-08] MEDS: Pantoprazole DR 40 MG TAB PO SCH (08:48)
[2024-07-08] MEDS: Furosemide 40 MG TAB PO SCH (08:49)
[2024-07-08] MEDS: Cyanocobalamin (Vitamin B-12) 1,000 MCG TAB PO SCH (08:49)
[2024-07-08] MEDS: metFORMIN 500 MG TAB PO SCH (08:49)
[2024-07-08] MEDS: Vitamin E 400 UNITS CAP PO SCH (08:49)
[2024-07-08] MEDS: Simethicone Chewable 80 MG TAB PO SCH ×2 (08:49→20:30)
[2024-07-08] MEDS: Loratadine 10 MG TAB PO SCH (08:50)
[2024-07-08] MEDS ORDERED: ALPHA D GALACTOSIDASE 400 UNIT PO SCH (09:00)
[2024-07-08] MEDS ORDERED: LIRAGLUTIDE 0.6 MG/0.1 ML SC SCH (09:00)
[2024-07-08] MEDS: Piperacillin/Tazobactam 3.375 GM in Sodium Chloride 0.9% 100 ML IVPB SCH (10:42)
[2024-07-08] MEDS: NS 0.9% w/ 20 MEQ KCL 1,000 ML/1,000 ML BAG IV SCH (10:42)
[2024-07-08] MEDS: Famotidine 20 MG TAB PO SCH (10:52)
[2024-07-08] MEDS: Aspirin 81 mg Enteric Coated Tablet PO SCH (10:52)
[2024-07-08] MEDS: Famotidine/PF 20 mg/2ml Vial SLOW IVP SCH (12:05)
[2024-07-08] MEDS: FLU (Fluad Triv) TS24-25 (65UP)/MF59C/PF 45 MCG/0.5 ML Syringe IM ONE (14:11)
[2024-07-08] MEDS: Multivit, Therapeutic 1 TAB PO SCH (20:24)
[2024-07-08] MEDS: Multivitamin w/Zinc Stress 1 TAB PO SCH (20:24)
[2024-07-08] MEDS: Latanoprost 0.005% Ophth Soln 2.5 ml Bottle EA EYE SCH (20:31)
[2024-07-09 05:53] LABS: #Basophils 0.03 10x3/uL (0.0-0.2); %Basophils 0.4 % (0.0-1.0); %Eosinophils 1.7 % (0.0-10.0); %Lymphocytes 12.9 % (21.0-51.0); %Monocytes 9.6 % (0.0-10.0); %Neutrophils 74.4 % (42.0-75.0); Hematocrit 32.9 % (36.0-47.0); Hemoglobin 10.8 g/dL (12.0-16.0); Mean Corpuscular HGB CONC 32.8 g/dL (32.0-36.0); Mean Corpuscular Hemoglobin 26.6 pg (27.0-31.0); Mean Platelet Volume 9.8 fL (7.4-10.4); Platelet Count 291 10x3/uL (130-400); RBC Distribution Width 18.2 % (11.5-14.5); Red Blood Cell (RBC) Count 4.06 mill/uL (4.20-5.40)
[2024-07-09 06:26] LABS: ALT (SGPT) 106 U/L (8-55); AST (SGOT) 144 U/L (5-34); Alkaline Phosphatase 595 U/L (40-110); Anion Gap 13 mmol/L (10-20); BUN (Urea Nitrogen) 11 mg/dL (9.8-20.1); Calc. Creatinine Clearance 139 mL/min (70-130); Calcium 8.5 mg/dL (7.8-10.44); Carbon Dioxide 26 mmol/L (23-31); Chloride 103 mmol/L (98-107); Estimated GFR 90; Glucose 155 mg/dL (83-110); Lipase 17 U/L (8-78); Potassium 3.6 mmol/L (3.5-5.1); Sodium 138 mmol/L (136-145)
[2024-07-09] MEDS: Pantoprazole DR 40 MG TAB PO SCH (08:29)
[2024-07-09] MEDS ORDERED: Iopamidol 30 ML ONE (08:51)
[2024-07-09] MEDS ORDERED: Indomethacin 50 MG SUPP ONE (08:51)
[2024-07-09] MEDS ORDERED: Etomidate 40 MG (20 mL) VIAL ONE (09:03)
[2024-07-09] MEDS ORDERED: fentaNYL 50 mcg/mL 1 mL Vial ONE (09:17)
[2024-07-09] MEDS ORDERED: PROPOFOL 200 MG/20 ML VIAL ONE (09:22)
[2024-07-09] MEDS ORDERED: Lidocaine 1% PF 5 ML VIAL ONE (09:22)
[2024-07-09] MEDS ORDERED: Rocuronium Bromide 10 MG/ML (10ML VIAL) ONE (09:22)
[2024-07-09] MEDS ORDERED: SUGAMMADEX SODIUM 200 MG/2 ML VIAL ONE (10:01)
[2024-07-09] MEDS: Insulin Regular, Human 100 UNIT/ML 10 ML VIAL SC PRN ×2 (17:24→20:02)
[2024-07-09] MEDS: diphenhydrAMINE 25 MG CAP PO SCH (20:22)
[2024-07-10 04:14] VITALS: TEMP 97.7
[2024-07-10 05:56] LABS: #Basophils 0.03 10x3/uL (0.0-0.2); %Basophils 0.6 % (0.0-1.0); %Eosinophils 3.2 % (0.0-10.0); %Lymphocytes 15.9 % (21.0-51.0); %Monocytes 8.5 % (0.0-10.0); %Neutrophils 70.7 % (42.0-75.0); Hematocrit 34.4 % (36.0-47.0); Hemoglobin 11.2 g/dL (12.0-16.0); Mean Corpuscular HGB CONC 32.6 g/dL (32.0-36.0); Mean Corpuscular Hemoglobin 26.7 pg (27.0-31.0); Mean Corpuscular Volume 81.9 fL (78.0-98.0); Platelet Count 300 10x3/uL (130-400); RBC Distribution Width 18.4 % (11.5-14.5)
[2024-07-10 06:20] LABS: ALT (SGPT) 94 U/L (8-55); AST (SGOT) 113 U/L (5-34); Alkaline Phosphatase 575 U/L (40-110); Anion Gap 12 mmol/L (10-20); BUN (Urea Nitrogen) 11 mg/dL (9.8-20.1); Bilirubin, Total 3.9 mg/dL (0.2-1.2); Calc. Creatinine Clearance 141 mL/min (70-130); Calcium 8.6 mg/dL (7.8-10.44); Carbon Dioxide 25 mmol/L (23-31); Chloride 104 mmol/L (98-107); Estimated GFR 91; Globulin 3.8 g/dL (2.4-3.5); Glucose 146 mg/dL (83-110); Lipase 23 U/L (8-78); Potassium 3.7 mmol/L (3.5-5.1); Protein, Total 5.8 g/dL (5.8-8.1); Sodium 137 mmol/L (136-145)
[2024-07-10 07:51] VITALS: BP 150/64
[2024-07-10] MEDS ORDERED: diphenhydrAMINE 25 MG CAP PO SCH (21:00)
== END 2024-07-10 17:13 | disposition home or self-care (01) | DRG 445 ==
LOC: ERS 20:13 → T4-A 07-08 00:46
PROVIDERS: ADMIT Student in an Organized Health Care Education/Training Program; ATTEND Family Medicine
PROC: 0FC98ZZ Extirpation of Matter from Common Bile Duct, Via Natural or Artificial Opening Endoscopic (ICD-10-PCS; principal; 2024-07-09)
DX: K80.31 Calculus of bile duct with cholangitis, unspecified, with obstruction (principal); I50.22 Chronic systolic (congestive) heart failure; Z68.42 Body mass index [BMI] 45.0-49.9, adult; E66.01 Morbid (severe) obesity due to excess calories; E03.9 Hypothyroidism, unspecified; E11.9 Type 2 diabetes mellitus without complications; E80.6 Other disorders of bilirubin metabolism; I50.9 Heart failure, unspecified; I11.0 Hypertensive heart disease with heart failure; Z90.710 Acquired absence of both cervix and uterus; Z90.49 Acquired absence of other specified parts of digestive tract; Z88.8 Allergy status to other drugs, medicaments and biological substances; Z79.84 Long term (current) use of oral hypoglycemic drugs; Z79.890 Hormone replacement therapy; Z79.82 Long term (current) use of aspirin; Z98.890 Other specified postprocedural states
CPT/HCPCS: 36415; 36416; 71045; 74177; 74330; 76705; 80053; 81001; 82977; 83036; 83690; 83735; 83880; 84484; 85025; 93005; 96365; 96375; J1815; J1940; J2543; J2704; J3010; J3480; J3490; Q9967